=== PATIENT | female | born 1965 | race Caucasian/White ===

== ENCOUNTER 2018-08-31 22:59 | Emergency (ER) | payer OTHER ==
[~2018-08-31] VITALS: Ht 172.7 cm; Wt 90.0 kg
[2018-08-31 23:11] VITALS: BP 194/103; PULSE 103; TEMP 98.7
[2018-08-31] MEDS ORDERED: TORADOL 10MG TA10 MG PO (23:23)
[2018-08-31] MEDS ORDERED: B12 SHOT (23:24)
[2018-09-01] MEDS ORDERED: DULCOLAX STOOL100 MG PO (01:07)
== END 2018-09-01 01:09 | disposition home or self-care (01) ==
LOC: COL.ER 22:59
DX: K59.00 Constipation, unspecified (principal); Z90.49 Acquired absence of other specified parts of digestive tract